=== PATIENT | female | born 1945 | race African-American/Black ===

== ENCOUNTER 2024-11-05 16:11 | Inpatient (IN) | payer BC, MEDICAID ==
[~2024-11-05] VITALS: Ht 180.3 cm; Wt 46.4 kg
[~2024-11-05 16:11] MED LIST: ALBU18HF2 IH; AMLO10TA16 PO; ASPI81TA52 PO; AZEL137S4 NS; BUDE10.26 INH; GUAI600T45 PO; IPRA4AER IH; LACT10SO78 PO; MONT-40 PO; PRED20TA PO
[2024-11-05 16:56] LABS: BASOPHILS % (AUTO) 0.7 % (0-1); EOSINOPHILS # (AUTO) 0.2 X10'3 (0-0.9); EOSINOPHILS % (AUTO) 2.8 % (0-6); HEMOGLOBIN 12.6 g/dl (12.0-16.0); LYMPHOCYTES % (AUTO) 18.1 % (21-51); MEAN CORPUSCULAR HEMOGLOBIN 28.9 PG (27.0-31.0); MEAN CORPUSCULAR HGB CONC 32.4 g/dL (33.0-36.5); MEAN CORPUSCULAR VOLUME 89.4 FL (78-98); MEAN PLATELET VOLUME 8.4 FL (7.4-10.4); MONOCYTES # (AUTO) 0.5 X10'3 (0-0.9); MONOCYTES % (AUTO) 8.6 % (2-12); NEUTROPHILS % (AUTO) 69.8 % (42-75); PLATELET COUNT 246 X10'3 (140-440); RED BLOOD COUNT 4.37 X10'6 (4.20-5.60); RED CELL DISTRIBUTION WIDTH 13.8 % (11.5-14.5); WHITE BLOOD COUNT 5.8 X10'3 (4.5-11.0)
[2024-11-05 17:12] LABS: ALANINE AMINOTRANSFERASE 20 U/L (12-78); ALBUMIN 3.2 G/DL (3.4-5.0); ALBUMIN/GLOBULIN RATIO 0.8 (1.1-1.5); ALKALINE PHOSPHATASE 93 IU/L (46-116); ANION GAP 4 (8-16); ASPARTATE AMINO TRANSFERASE 18 U/L (10-37); BILIRUBIN,TOTAL 0.2 MG/DL (0.1-1.0); BLOOD UREA NITROGEN 11 MG/DL (7-18); BUN/CREATININE RATIO 16.2 (10.0-20.0); CALCIUM 8.9 MG/DL (8.5-10.1); CHLORIDE 107 MMOL/L (99-107); CREATININE 0.68 MG/DL (0.40-0.90); GLUCOSE 111 MG/DL (70-104); POTASSIUM 4.5 MMOL/L (3.5-5.1); SODIUM 145 MMOL/L (135-145); TOTAL CARBON DIOXIDE 33.7 MMOL/L (24-32); TOTAL PROTEIN 7.1 G/DL (6.4-8.2); eCRCL 50 ML/MIN; eGFR > 90 ML/MIN
[2024-11-05 17:19] LABS: PRO BRAIN NATRIURETIC PEPTIDE 35 PG/ML (0-450)
--- NOTE | 2024-11-05 18:23 | Physician Documentation ---
History of Present Illness ~ Chief Complaint: Shortness of Breath Stated Complaint: SOB Time Seen by MD: 18:05 Primary Medical Doctor: [facility] HPI Patient presents to the emergency room with gradual two month increased frequency of shortness of breath. Patient reports that she was also been having problems with constipation and feels like this is somehow related causing her shortness of breath. She was states it feels like she just isn't able to cough something up in his in his as if something is in her chest that needs to be coughed up. No fevers. Patient was normally on 2 L of oxygen and reports that she seven some degree of difficulty with her oxygen machine and it was working with the business to get her machine fixed. She was states she was receiving oxygen but it was not of high quality. Reports compliance with her inhalers. Medication Reconciliation Allergies: Coded Allergies: No Known Allergies (Unverified , 11/05/24) Scheduled Aspirin (Aspirin EC), 1 TAB PO DAILY Azelastine HCl (Azelastine HCl), 2 SPRAY NS BID Budesonide/Formoterol Fumarate (Budesonide-Formoterol 160-4.5), 2 PUFFS INH Q12H Guaifenesin (Mucinex), 1,200 MG PO Q12H Scheduled PRN Albuterol Sulfate (Ventolin Hfa), 1-2 PUFFS IH Q4H PRN for SOB or wheezing Discontinued Medications Amlodipine Besylate (Amlodipine Besylate), 1 TAB PO DAILY Discontinued Reason: patient no longer taking Ipratropium/Albuterol Sulfate (Combivent Respimat Inhal [place]), 2 PUFFS IH Q4H PRN for SOB or wheezing Discontinued Reason: patient no longer taking Lactulose (Lactulose), 30 ML PO Q8H PRN for constipation Discontinued Reason: patient no longer taking Montelukast Sodium (Montelukast Sodium), 10 MG PO DAILY Discontinued Reason: completed med therapy Prednisone* (Prednisone*), 2 TAB PO DAILY Discontinued Reason: patient no longer taking Past Medical History Past Medical History: High Cholesterol, COPD Past Surgical History: noncontributory Patient History: FH: hypertension MOTHER Maternal grandmother Smoking Status: Former smoker Review of Systems ROS All review of systems negative except as per HPI Physical Exam Vital Signs: Temperature: 98.7, Heart Rate: 89, Respiratory Rate: 16, BP: 139/69, Pulse Oximetry: 97, Weight: 46.360 Oxygen Flow Rate: 4.0 Physical Exam General: Patient is awake, alert, oriented x4 in no acute distress Head: Normocephalic and atraumatic. Eyes: Conjunctival normal. EOMI. PERRL. ENT: Mucous membranes moist. Neck: Supple, trachea is midline. Chest: Diminished breath sounds bilaterally with noted wheezing bilaterally.. There is no accessory muscle use or retractions. Cardiac: RRR without murmurs, gallops, or rubs. Abd: Soft, nondistended, nontender, with normoactive bowel sounds. No guarding, rebound, or rigidity. Extremities: Normal strength. Normal range of motion. No deformities or edema. No calf tenderness to palpation Progress Progress Note Patient failed road test Results/Orders Results/Orders Orders - JAYY CRUZ MD Svn Treatment (11/05/24 18:28) Page Hospitalist (11/05/24 21:12) Fill Out Med Reconciliation (11/05/24 21:12) Completed Orders - JAYY CRUZ MD Ipratropium/Albuterol Nebule (Ipratrop/A (11/05/24 18:30) Dexamethasone Tablet (Decadron Tablet) (11/05/24 18:35) Azithromycin Tablet (Zithromax Tablet) (11/05/24 18:35) Medications Received in ER Medications (Trade) Dose Ordered Sig/Thais Route PRN Reason Start Time Stop Time Status Last Admin Dose Admin (ipratrop/ albuterol 0.5-3(2.5) MG/3ml nebule) 3 ml ONCE ONCE NEB 11/05/24 18:30 11/05/24 18:31 DC 11/05/24 18:52 3 ML (Decadron tablet) 8 mg ONCE ONCE PO 11/05/24 18:35 11/05/24 18:36 DC 11/05/24 18:47 8 MG (Zithromax tablet) 500 mg ONCE ONCE PO 11/05/24 18:35 11/05/24 18:36 DC 11/05/24 18:46 500 MG Vital Signs 11/05/24 11/05/24 11/05/24 11/05/24 16:35 17:54 18:00 18:01 Temp 98.7 Pulse 88 89 Resp 20 16 16 B/P (MAP) 144/80 139/69 (92) Pulse Ox 99 97 97 O2 Delivery Nasal Cannula* O2 Flow Rate 2.5 4.0 4 FiO2 N/A 11/05/24 11/05/24 11/05/24 11/05/24 18:55 19:00 21:00 21:00 Pulse 88 101 98 Resp 18 18 15 20 B/P (MAP) 135/64 (87) Pulse Ox 98 98 98 O2 Delivery Nasal Cannula* Nasal Cannula* O2 Flow Rate 3 3 4.0 FiO2 32 32 Laboratory Tests Test 11/05/24 16:47 11/05/24 18:36 11/05/24 19:43 White Blood Count 5.8 Red Blood Count 4.37 Hemoglobin 12.6 Hematocrit 39.0 Mean Corpuscular Volume 89.4 Mean Corpuscular Hemoglobin 28.9 Mean Corpuscular Hemoglobin Concent 32.4 L Red Cell Distribution Width 13.8 Platelet Count 246 Mean Platelet Volume 8.4 Neutrophils (%) (Auto) 69.8 Lymphocytes (%) (Auto) 18.1 L Monocytes (%) (Auto) 8.6 Eosinophils (%) (Auto) 2.8 Basophils (%) (Auto) 0.7 Neutrophils # (Auto) 4.0 Lymphocytes # (Auto) 1.0 L Monocytes # (Auto) 0.5 Eosinophils # (Auto) 0.2 Basophils # (Auto) 0.0 CBC Comment Sodium Level 145 Potassium Level 4.5 Chloride Level 107 Carbon Dioxide Level 33.7 H Anion Gap 4 L Blood Urea Nitrogen 11 Creatinine 0.68 Estimated GFR/1.73 m2 > 90 BUN/Creatinine Ratio 16.2 Glucose Level 111 H Calcium Level 8.9 Total Bilirubin 0.2 Aspartate Amino Transf (AST/SGOT) 18 Alanine Aminotransferase (ALT/SGPT) 20 Alkaline Phosphatase 93 Troponin I High Sensitivity 12 10 10 Pro-B-Type Natriuretic Peptide 35 Total Protein 7.1 Albumin 3.2 L Globulin 3.9 Albumin/Globulin Ratio 0.8 L Chemistry Comments Troponin I High Sens Percent Delta 16 0 Troponin I Hi Sens Absolute Change -2 0 EKG/XRAY/CT/US/VASC/MRI EKG : Additional Comment EKG interpreted by myself shows time of 1635, rate 89, sinus rhythm, normal axis, no ST changes Chest X-Ray : Additional Comments Exam: CHEST,SINGLE VIEW CHEST RADIOGRAPH Indication: Right pneumothorax Technique: Single frontal view of the chest was obtained Comparison: DI CHEST,SINGLE VIEW on DOS: 11/05/24, DI CHEST,SINGLE VIEW on DOS: 11/04/24, DI CHEST,SINGLE VIEW on DOS: 11/02/24 FINDINGS: Lines and Tubes: None Lungs: No focal consolidation. Pleura: No effusion. No pneumothorax. Cardiomediastinal contours: Unremarkable Bones: No acute osseous abnormality. IMPRESSION: 1. No acute cardiopulmonary disease. Electronically Signed by:EMELY VELA Jr., DO Date Time: 11/05/24 1650 Medical Decision Making Findings Patient presents to the emergency room with chief complaint of shortness of breath. Differentials include but are not limited to pneumonia, CHF exacerbation, COPD exacerbation, deconditioning, allergies therefore emergent labs and imaging indicated. Patient was had improvement with breathing treatmen t and x-ray is reassuring as are labs. Unfortunately she failed road test. It was azithromycin empirically started it was well as steroids. Departure Admitted to Inpatient Unit: yes, to hospitalist Impression: Primary Impression: COPD exacerbation Condition: Guarded Referrals: NO PRIMARY CARE PROVIDER (PCP) Signature Scribe Signature: No scribe Attestation: The note accurately reflects work and decisions made by me.Jayy Cruz MD 11/05/24 21:14 JAYY CRUZ MD November 05, 2024 18:23
[2024-11-05] MEDS: azithromycin 250mg tablet PO ONE (18:46)
[2024-11-05] MEDS: dexamethasone 4mg tablet PO ONE (18:47)
[2024-11-05] MEDS: ipratropium/albuterol 3ml nebule NEB ONE (18:52)
[2024-11-05 18:55] VITALS: PULSE 88; RESP 18; O2SAT 98
[2024-11-05 19:00] VITALS: PULSE 101; RESP 18; O2SAT 98
[2024-11-05] MEDS ORDERED: magnesium sulf-water 2g/50mL 50 ML IV PRN (21:40)
[2024-11-05] MEDS ORDERED: acetaminophen 325mg tablet PO PRN ×2 (21:40→22:35)
[2024-11-05] MEDS ORDERED: potassium Cl 20 mEq SR tablet PO PRN ×2 (21:40)
[2024-11-05] MEDS ORDERED: magnesium sulf-water 4G/100mL 100 ML IV PRN (21:40)
[2024-11-05] MEDS ORDERED: potassium Cl 40MEQ/1/2NS 520ml 520 ML IV PRN (21:40)
[2024-11-05] MEDS ORDERED: ondansetron/PF 4mg/2ml inj IV PRN (21:40)
[2024-11-05] MEDS ORDERED: mag hydrox/Alum hydrox/simeth 30ml oral suspension PO PRN (21:40)
[2024-11-05] MEDS ORDERED: magnesium Cl slow-release 64mg tablet PO PRN (21:40)
[2024-11-05 21:53] LABS: BILIRUBIN,URINE NEGATIVE (Neg); CLARITY,URINE CLEAR (Clear); COLOR,URINE YELLOW (Yellow); GLUCOSE, URINE NEGATIVE (Neg); KETONES,URINE NEGATIVE (Neg); LEUKOCYTE ESTERASE ,URINE NEGATIVE (Neg); NITRITES, URINE NEGATIVE (Neg); OCCULT BLOOD,URINE NEGATIVE (Neg); PH,URINE 6.5 (4.8-8.0); PROTEIN,URINE NEGATIVE (Neg); UROBILINOGEN,URINE 0.2 E.U/dL (0.2-1.0)
[2024-11-05 22:00] LABS: UA COLLECTION TYPE NON-SPECIFIED
[2024-11-05 22:04] LABS: HEMOGLOBIN A1C 6.6 % (4.5-6.2)
[2024-11-05] MEDS: normal saline 1000ml 1,000 ML IV SCH (22:05)
--- NOTE | 2024-11-05 22:20 | HISTORY AND PHYSICAL-Residence ---
History & Physical Providers to CC Resident Creating Document: DAGOBERTO NGUYEN, RES ~ History of Present Illness Primary Medical Doctor: None Reason for Admit\Complaint: Shortness of breath History of Present Illness PCP: None. As per patient she moved to [place] in 2019, she is not being able to establish PCP. 79-year-old female patient quit past medical history of COPD diagnosed in 2018, using 2 L of oxygen at home, arthritis came to the hospital with chief complaint of shortness of breath. The patient mentioned that during the last week her home oxygen machine was not working appropriately reason for which she started having increased episodes of shortness of breath. Yesterday the patient received a new machine, the patient was using it as always but she noticed that she was not able to catch her breath. The patient also endorses increased frequency of dry cough, this morning the patient noticed that his oxygen saturation was decreasing even though after she increased her oxygen levels, reason for which she decided to to call to the ambulance and come to the hospital. Among other symptoms the patient mentioned that when she has the shortness of breath some chest pressure is noted, without radiation, 5/10 in intensity. The patient currently denies palpitations, lightheadedness, dizziness, urinary or intestinal symptoms. Allergies: Coded Allergies: No Known Allergies (Unverified , 11/05/24) Home Medications Home Medications Active Budesonide-Formoterol 160-4.5 (Budesonide/Formoterol Fumarate) 160 Mcg-4.5 Mcg/Actuation Hfa.aer.ad 2 Puffs INH Q12H 30 Days Azelastine HCl 137 Mcg (0.1 %) Nimitz.pump 2 Nimitz NS BID Aspirin EC (Aspirin) 81 Mg Tablet.dr 1 Tab PO DAILY 30 Days Ventolin Hfa (Albuterol Sulfate) 90 Mcg Hfa.aer.ad 1-2 Puffs IH Q4H PRN Mucinex (Guaifenesin) 600 Mg Tablet.sa 1,200 Mg PO Q12H 7 Days Past Medical History Past Medical History COPD using albuterol, budesonide and formoterol at home. Baseline oxygen 2 L. Arthritis for which he takes Tylenol over the counter. Past Surgical History Surgical History Comment Benign polyp removed 13 years ago. Tonsillectomy during childhood. Family History Family History: FH: hypertension MOTHER Maternal grandmother Past Social History Smoking: Quit greater than 1 year (As per patient she quit smoking around 2016, she used to smoke half a pack a day for 10 years.) Alcohol Use: Occasionally (The patient endorses four drinks of sonny per month, sometimes she does not drink.) Drug Use: Marijuana (The patient endorsed use of marijuana several years ago.) Lives with: Other (The patient lives with her daughter who usually takes care of her.) Lives In: Home (The patient lives in her daughter's house.) Occupation: retired ROS All Other Systems: Reviewed and Negative Exam Vitals: Vital Signs Date Time Temp Pulse Resp B/P (MAP) Pulse Ox O2 Delivery O2 Flow Rate FiO2 11/05/24 21:00 20 11/05/24 21:00 98 135/64 (87) 98 4.0 11/05/24 19:00 Nasal Cannula* 32 11/05/24 16:35 98.7 Physical exam: General: Cachectic elderly women, well alert, well oriented, not confused, not agitated, not in acute distress, well cooperated during the physical. HEENT: Conjunctive are pink, sclerae clear, no icterus, pupil is equal in both sides, reactive to light, no ear discharge, no pharyngeal erythema or an edema. Neck: Supple, no JVD, no lymphadenopathy and thyromegaly. Chest: Equal air entry on both lungs, presence of diffuse bilateral wheezing. Cardiovascular: S1-S2 regular sinus rhythm and, regular rate, no gallops, no rubs, no murmurs Abdomen: No visible peristalsis, Bowel sounds present on auscultation, soft, nontender, no guarding, no rigidity Extremities: No obvious deformities, no pitting edema bilaterally, capillary refill intact, peripheral pulsations are intact on both sides Central Nervous System: No focal neurological deficits, no motor or sensory weakness in all 4 extremities, could move all 4 extremities, 2+ deep tendon reflexes, negative Babinski. Musculoskeletal: No joint swelling, deformities, inflammations, and no scoliosis and back tenderness Skin: Warm and dry. Diagnostic Data Last Recorded Lab Results: 11/05/24 1647 11/05/24 1647 Advance Care Planning Advanced Care plannin - 30 Minutes (I spent a total of 17 minutes on reviewing various resuscitative measures/ACP with the patient at the time of admission. The patient has decided on a full code status.) Additional Plan Assessment and plan: 79-year-old female patient came to the hospital with chief complaint of shortness of breath. The patient uses normally oxygen at home, baseline 2 L. Acute on chronic hypoxemic respiratory failure: Acute exacerbation of COPD: Acute exacerbation of congestive heart failure-ruled out: Pulmonary embolism-ruled out: Severe centrilobular emphysema: The patient came to the hospital with chief complaint of shortness of breaths and increased need of oxygen. Her baseline of oxygen is 2 L. the patient also endorses increased frequency of dry cough. The patient mentioned that her oxygen was around 84 % even with her machine. Follow-up COVID-19, Well's score 1.5: Elevated D-dimer, CTA of the chest: No evidence of acute or chronic PE. 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 No evidence of dissection or ascending thoracic aorta aneurysm. COPD with severe centrilobular emphysema ProBNP 35: Ruled out CHF. Methylprednisolone 60 mg b.i.d. Ceftriaxone 1 g daily. Azithromycin 500 mg daily. DuoNeb q.4h scheduled. DuoNeb q.2h p.r.n. Culturelle [id number] mmu b.i.d. Keep oxygen saturation above 88%. Incentive spirometry every 2 hours while awake. Arthritis: Acetaminophen p.r.n. for mild pain. Code status: Full code DVT prophylaxis: Heparin Analgesia/sedation: Tylenol. Line/tube: PIV GI prophylaxis: Protonix Nutrition: Regular diet PT: Ordered Prognosis: Guarded Disposition: The patient will be admitted to ortho floor. Dagoberto Sparks Internal Medicine Resident [facility] Date of Service: November 05, 2024 Billing Provider: TOMMY JACKSON MD, FRANCO LUIS, RES November 05, 2024 22:20 TOMMY JACKSON MD November 06, 2024 04:58
[2024-11-05] MEDS ORDERED: ipratropium/albuterol 3ml nebule NEB PRN (22:30)
[2024-11-05 22:38] LABS: D-DIMER 1.66 MG/L FEU (0-0.50)
[2024-11-05] MEDS ORDERED: iohexol 350MG/ML 100ml bottle IV ONE (22:46)
[2024-11-05] MEDS: CefTRIAXone/D5W-Rocephin 1gm 50 ML IV SCH (23:09)
[2024-11-05] MEDS: lactobacillus rhamnosus 10,000 MMU CELLS/CAPSULE PO SCH (23:09)
[2024-11-05 23:30] VITALS: BP 169/68; PULSE 103; RESP 20; TEMP 99.3; O2SAT 92
--- NOTE | 2024-11-05 23:50 | RADIOLOGY REPORT ---
Clinical History sob and elevated d dimer Comparison None Technique: MIPS reconstruction was performed in multiple planes. All CT scans at this medical facility are performed using dose modulation techniques as appropriate t o a performed exam including the following: Automated exposure control was utilized; adjustment of th e mA and/or kV according to patient size; and use of iterative reconstruction technique. All CT studies are reported to the Dose Index Registry of the [employer]. 3D images be reconstructed or obtained with maximum intensity projection postprocessing (MIP), volume rendered or other 3D technique. Contrast: OMNI 350 100ML Radiation Dose: CTDI (mGy): 15.51; DLP (mGy-cm): 266.70 YONIS CASTRO, [id number] Findings: white shoe examiner: none Mediastinum: Unremarkable thyroid gland. No significant meidastinal or hilar lymphadenopathy. No ev idence of acute or chronic PE. Atherosclerotic calcification of thoracic aorta. 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 Descendi ng thoracic aorta stent is seen in placeThe major mediastinal vascular structures are unremarkable. T he heart and pericardium are unremarkable. The esophagus is unremarkable. Thoracic wall: Subcentimeter partially imaged left breast peripheral nodule which could represent a l ymph node, correlation with dedicated breast imaging is recommended Lungs: Extensive bilateral centrilobular emphysematous changes. Inferior lingula, right middle lobe and bibasilar atelectasis. No suspicious pulmonary nodules, masses, consolidation or edema.No pleura l effusion. No pneumothorax.The major airways are unremarkable. Upper abdomen: No acute pathology. Musculoskeletal: No acute osseous abnormality. Impression: No evidence of acute or chronic PE. 1.7 x 1.6 cm focal eccentric saccular aneurysm is seen arising from the lateral aspect of the mid aor tic arch. No evidence of dissection or ascending thoracic aorta aneurysm COPD with severe centrilobular emphysema No suspicious pulmonary nodules, masses, consolidation or edema. This report was electronically signed by Ezra Arenas MD on 11/05/2024 11:46:33 PM.
[2024-11-06] VITALS (16 sets, daily range): BP systolic 137–166; BP diastolic 53–64; PULSE 79–105; RESP 16–22; TEMP 97.8–98.7; O2SAT 92–99
[2024-11-06 05:29] LABS: BASOPHILS % (AUTO) 0.5 % (0-1); EOSINOPHILS % (AUTO) 0 % (0-6); HEMATOCRIT 37.9 % (35.0-45.0); HEMOGLOBIN 12.2 g/dl (12.0-16.0); LYMPHOCYTES % (AUTO) 15.2 % (21-51); MEAN CORPUSCULAR HEMOGLOBIN 28.7 PG (27.0-31.0); MEAN CORPUSCULAR HGB CONC 32.2 g/dL (33.0-36.5); MEAN CORPUSCULAR VOLUME 89.4 FL (78-98); MEAN PLATELET VOLUME 8.7 FL (7.4-10.4); MONOCYTES # (AUTO) 0.2 X10'3 (0-0.9); MONOCYTES % (AUTO) 2.6 % (2-12); NEUTROPHILS # (AUTO) 5.2 X10'3 (1.8-7.7); NEUTROPHILS % (AUTO) 81.7 % (42-75); PLATELET COUNT 259 X10'3 (140-440); RED BLOOD COUNT 4.24 X10'6 (4.20-5.60); RED CELL DISTRIBUTION WIDTH 13.8 % (11.5-14.5); WHITE BLOOD COUNT 6.4 X10'3 (4.5-11.0)
[2024-11-06 05:49] LABS: ALANINE AMINOTRANSFERASE 20 U/L (12-78); ALBUMIN 3.4 G/DL (3.4-5.0); ALBUMIN/GLOBULIN RATIO 0.9 (1.1-1.5); ALKALINE PHOSPHATASE 94 IU/L (46-116); ANION GAP 6 (8-16); ASPARTATE AMINO TRANSFERASE 19 U/L (10-37); BILIRUBIN,TOTAL 0.2 MG/DL (0.1-1.0); BLOOD UREA NITROGEN 11 MG/DL (7-18); CALCIUM 9.2 MG/DL (8.5-10.1); CHLORIDE 106 MMOL/L (99-107); CREATININE 0.55 MG/DL (0.40-0.90); GLUCOSE 139 MG/DL (70-104); MAGNESIUM 2.2 MG/DL (1.5-2.4); POTASSIUM 4.5 MMOL/L (3.5-5.1); SODIUM 143 MMOL/L (135-145); TOTAL CARBON DIOXIDE 30.8 MMOL/L (24-32); TOTAL PROTEIN 7.4 G/DL (6.4-8.2); eCRCL 62 ML/MIN; eGFR > 90 ML/MIN
--- NOTE | 2024-11-06 06:44 | ELECTROCARDIOGRAPH REPORT ---
[facility] Test Date: 2024-11-05 Test Time: 16:35:33 Pat Name: YONIS CASTRO Department: EMERGENCY ROOM Room: [place] [id number] A Gender: F Operations Director: YAMILET : 1945 Requested By: BACILIO LIRA Order Number: [id number] Reading MD: Dr. Amari Roman Measurements Intervals [place] Rate: 89 P: 75 MT: 156 QRS: 57 QRSD: 84 T: 83 QT: 365 QTc: 445 Interpretive Statements Sinus rhythm Borderline low voltage, extremity leads Electronically Signed On 11-07-2024 15:44:[address] Amari Roman Please click the below link to view image of tracing.
[2024-11-06] MEDS: ipratropium/albuterol 3ml nebule NEB SCH (07:12)
[2024-11-06] MEDS: K and/or MAG REPLACEMENT MC SCH (08:00)
[2024-11-06] MEDS: methylPREDNISolone sod succ/PF 40mg inj. IV SCH ×2 (08:23→17:01)
[2024-11-06] MEDS: azithromycin 250mg tablet PO ONE (08:27)
[2024-11-06] MEDS: docusate sod 100mg capsule PO SCH (08:27)
[2024-11-06] MEDS: pantoprazole 40mg Tablet.DR PO SCH (08:27)
[2024-11-06] MEDS: heparin, porcine 5000 units/ml vial SQ SCH (08:29)
[2024-11-06] MEDS: magnesium hydroxide 30ml (MOM) UD suspension PO PRN (15:13)
[2024-11-06] MEDS: sennosides/docusate sodium tablet PO ONE (17:22)
--- NOTE | 2024-11-06 17:22 | CARDIOLOGY REPORT ---
APPROVED REPORT EXAM: Comprehensive 2D, Doppler, and color-flow Echocardiogram. Patient Location: 4007 A Blood Pressure: 169/68 mmHg Heart Rate: 103 bpm Rhythm: SINUS TACHYCARDIA Indications SHORTNESS OF BREATH COPD FOCAL AORTIC ANEURYSM AT THE ARCH Approver: none Previous echo: 01/16/24 [facility] (EF 65-70%, trace MR, mild TR) 2D Dimensions RVDd 3.4 cm IVSd 1.0 (0.7-1.1cm) LVDd 3.7 cm PWd 1.0 (0.7-1.1cm) IVSs 1.5 (0.8-1.2cm) LVDs 2.0 (2.5-4.0cm) PWs 1.2 (0.8-1.2cm) LVOT Diameter 1.85 (1.8-2.4cm) LVEF(%) 78.6 (>50%) FS (%) 46.4 % SV 44.6 ml CO 4.3 L/min M-Mode Dimensions Left Atrium(MM) 2.79 (2.5-4.0cm) Aortic Root 3.08 (2.2-3.7cm) Aortic Cusp Exc 1.83 (1.5-2.0cm) Aortic Valve AoV Peak Fabio. 152.7 cm/s AoV VTI 24.4 cm AO Peak GR. 9.3 mmHg AO Mean GR. 5 mmHg LVOT VTI 23.47 cm LVOT Peak Fabio. 125.5 cm/s GABY(VTI)/BSA 2.60 cm2/m2 GABY (VTI) 2.60 cm2 Mitral Valve MV E Velocity 82.4 cm/s MV Peak Gr. 3 mmHg MV DECEL TIME 252 ms MV A Velocity 111.0 cm/s MV PHT 56 ms E/A Ratio 0.7 MVA (PHT) 3.93 cm2 MV VMax83.7 cm/s TDI Medial E' P. V 11.11 cm/s E/Medial E' 7.4 Tricuspid Valve TR P. Velocity 300 cm/s RAP ESTIMATE 10 mmHg TR Peak Gr. 36 mmHg RVSP 46 mmHg Pulmonary Vein S1 Velocity 72.5 cm/s D2 Velocity 46.1 cm/s PVa Fzohgvrt53.9 cm/s PVa [id number] msec LEFT VENTRICLE Normal LV size and wall thickness. Overall systolic function is hyperdynamic. LVOT obstruction, likel y due to hyperdynamic LV function. Resting gradient of 7 mmHg, increasing to 28 mmHg with Valsalva ma neuver. LVEF is 75-80%. RIGHT VENTRICLE RV is normal size and function. Thickened RV free wall. ATRIA LA size is normal. AORTIC VALVE Trileaflet AV appears mildly sclerotic without stenosis or insufficiency. MITRAL VALVE Mild MV annular calcification without stenosis. Trace regurgitation. TRICUSPID VALVE TV appears structurally normal with trace regurgitation. PULMONIC VALVE Normal PV without stenosis, physiologic insufficiency. GREAT VESSELS Aortic root is normal in size. Ascending aorta is normal in size. PERICARDIUM Normal pericardium. No effusion. Other Information Study Quality: Adequate, but difficult due to COPD.
--- NOTE | 2024-11-06 19:06 | PROGRESS NOTE- Residence ---
Progress Note - Resident Providers to CC Resident Creating Document: JENNIFER ROSARIO RES ~ Antibiotic Timeout Antibiotic Ordered?: Yes Subjective The patient is a 79-year-old female with a longstanding history of COPD, diagnosed in 2018, currently on 2 L supplemental oxygen at home. She presented with worsening shortness of breath. The patient lacks consistent access to a primary care provider and [facility] and [place]. Dr. Albert addressed the issue with case management in initiated a referral to [facility] for primary care services to help reduce the risk of future exacerbations in hospital readmissions. The patient was also referred to pulmonary rehab for ongoing support and management. Objective Vital Signs Date Time Temp Pulse Resp B/P (MAP) Pulse Ox O2 Delivery O2 Flow Rate FiO2 11/06/24 18:30 93 11/06/24 18:00 98.7 22 166/64 (98) 92 Nasal Cannula 3.5 11/06/24 14:37 32 General: Awake and Alert, speaks in pauses due to shortness of breath, unable to complete a sentence HEENT: Conjunctiva pink, Sclera clear, Mucus Membranes moist. Neck: Supple without masses and tenderness. Resp: Diffuse bilateral wheezing, air entry has significantly reduced bilaterally Heart: Regular Rate and rhythm, normal S1 and S2 without murmur, rub or gallop. Abdomen: Soft and non tender no organomegaly Extremities: No cyanosis,clubbing or edema. Skin: Warm and Dry. Result Diagram: 11/06/24 0501 11/06/24 0501 Coagulation Studies Laboratory Tests Test 11/05/24 22:19 D-Dimer 1.66 MG/L FEU (0-0.50) H D-Dimer Comment Advance Care Planning Advanced Care plannin - 30 Minutes Assessment Assessment The patient is a 79-year-old female with a longstanding history of COPD, diagnosed in 2018, currently on 2 L supplemental oxygen at home. She presented with worsening shortness of breath. The patient legs consistent access to a primary care provider and has been [facility] and [place]. Plan Plan Acute on chronic hypoxemic respiratory failure: Acute exacerbation of COPD: Acute exacerbation of congestive heart failure-ruled out: Severe centrilobular emphysema D-dimer elevated, CTA performed, PE ruled out. 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 No evidence of dissection or ascending thoracic aorta aneurysm. Methylprednisolone increased to 60 mg 3 times daily Ceftriaxone 1 g daily. Azithromycin 500 mg daily. For three days, we will discontinue tomorrow DuoNeb q.4h scheduled. DuoNeb q.2h p.r.n. Culturelle [id number] mmu b.i.d. Keep oxygen saturation above 88%. Incentive spirometry every 2 hours while awake. Newly diagnosed diabetes type 2: A1c 6.6 Hyperglycemia/hypoglycemia protocol in place Patient will be discharged on metformin 500 mg twice daily Hyperlipidemia: LDL 130 - goal less than 70 Atorvastatin 40 mg p.o. daily initiated Arthritis: Acetaminophen p.r.n. for mild pain. Code status: Full code DVT prophylaxis: Heparin Jennifer Rosario Internal Medicine Resident Date of Service: November 06, 2024 Billing Provider: STACEY ALBERT MD, SHAMS, RES November 06, 2024 19:06
[2024-11-06] MEDS: sennosides/docusate sodium tablet PO SCH (19:27)
[2024-11-06] MEDS: polyethylene glycol 3350 17gm powd pack PO SCH (20:31)
[2024-11-06 22:16] LABS: CHOL/HDL RATIO 3.4 (0.00-4.99); CHOLESTEROL 229 MG/DL (0-200); HDL CHOLESTEROL 67 MG/DL (35-60); LDL CHOLESTEROL 130 MG/DL (50-100); TRIGLYCERIDES 59 MG/DL (20-135)
[2024-11-07] VITALS (12 sets, daily range): BP systolic 135–177; BP diastolic 56–85; PULSE 75–107; RESP 16–26; TEMP 97.6–98.6; O2SAT 89–99
[2024-11-07 04:22] LABS: BASOPHILS % (AUTO) 0.3 % (0-1); EOSINOPHILS % (AUTO) 0.1 % (0-6); HEMATOCRIT 36.4 % (35.0-45.0); HEMOGLOBIN 11.5 g/dl (12.0-16.0); LYMPHOCYTES # (AUTO) 0.6 X10'3 (1.1-4.8); LYMPHOCYTES % (AUTO) 8.8 % (21-51); MEAN CORPUSCULAR HEMOGLOBIN 28.5 PG (27.0-31.0); MEAN CORPUSCULAR HGB CONC 31.7 g/dL (33.0-36.5); MEAN CORPUSCULAR VOLUME 89.9 FL (78-98); MEAN PLATELET VOLUME 8.8 FL (7.4-10.4); MONOCYTES # (AUTO) 0.1 X10'3 (0-0.9); MONOCYTES % (AUTO) 0.9 % (2-12); NEUTROPHILS # (AUTO) 6.5 X10'3 (1.8-7.7); NEUTROPHILS % (AUTO) 89.9 % (42-75); PLATELET COUNT 266 X10'3 (140-440); RED BLOOD COUNT 4.05 X10'6 (4.20-5.60); RED CELL DISTRIBUTION WIDTH 14.3 % (11.5-14.5); WHITE BLOOD COUNT 7.2 X10'3 (4.5-11.0)
[2024-11-07] MEDS: amLODIPine 5mg tablet PO ONE (04:42)
[2024-11-07 04:43] LABS: ALANINE AMINOTRANSFERASE 18 U/L (12-78); ALBUMIN 3.4 G/DL (3.4-5.0); ALBUMIN/GLOBULIN RATIO 0.9 (1.1-1.5); ALKALINE PHOSPHATASE 92 IU/L (46-116); ANION GAP 7 (8-16); ASPARTATE AMINO TRANSFERASE 19 U/L (10-37); BILIRUBIN,TOTAL 0.1 MG/DL (0.1-1.0); BLOOD UREA NITROGEN 11 MG/DL (7-18); BUN/CREATININE RATIO 16.4 (10.0-20.0); CALCIUM 9.4 MG/DL (8.5-10.1); CHLORIDE 104 MMOL/L (99-107); CREATININE 0.67 MG/DL (0.40-0.90); GLUCOSE 175 MG/DL (70-104); MAGNESIUM 2.2 MG/DL (1.5-2.4); POTASSIUM 4.4 MMOL/L (3.5-5.1); SODIUM 144 MMOL/L (135-145); TOTAL CARBON DIOXIDE 32.7 MMOL/L (24-32); TOTAL PROTEIN 7.3 G/DL (6.4-8.2); eCRCL 51 ML/MIN; eGFR > 90 ML/MIN
[2024-11-07] MEDS: azithromycin 250mg tablet PO SCH (08:02)
[2024-11-07] MEDS: atorvastatin 20mg tablet PO SCH (09:32)
[2024-11-07] MEDS ORDERED: dextrose 50%-water 50ml dispensing syringe IV PRN ×2 (13:30)
[2024-11-07] MEDS ORDERED: DEXTROSE 15 GM of carb/4 tabs (each vial/BOTTLE has 4 tablets) PO PRN ×2 (13:30)
[2024-11-07] MEDS ORDERED: glucagon, human recombinant 1mg kit SUBCUT PRN (13:30)
--- NOTE | 2024-11-07 14:19 | PROGRESS NOTE- Residence ---
Progress Note - Resident Providers to CC Resident Creating Document: JENNIFER ROSARIO RES ~ Antibiotic Timeout Antibiotic Ordered?: Yes Subjective Patient was seen and examined at bedside. She is feeling relatively better today. She is on 3 L supplemental oxygen via nasal cannula. She has diagnosed with diabetes type 2, discuss day diet and lifestyle modification and metformin upon discharge. We discussed referral to [facility] [place] with keycase assembler. She has referred to pulmonary rehab. Objective Vital Signs Date Time Temp Pulse Resp B/P (MAP) Pulse Ox O2 Delivery O2 Flow Rate FiO2 11/07/24 11:51 103 26 Nasal Cannula 3.0 11/07/24 11:49 99 32 11/07/24 10:00 98.6 135/56 (82) General: Awake and Alert, speaks in pauses due to shortness of breath, unable to complete a sentence HEENT: Conjunctiva pink, Sclera clear, Mucus Membranes moist. Neck: Supple without masses and tenderness. Resp: Diffuse bilateral wheezing, air entry has reduced bilaterally, more prominent on left side Heart: Regular Rate and rhythm, normal S1 and S2 without murmur, rub or gallop. Abdomen: Soft and non tender no organomegaly Extremities: No cyanosis,clubbing or edema. Skin: Warm and Dry. Result Diagram: 11/07/24 0357 11/07/24 0357 Coagulation Studies Laboratory Tests Test 11/05/24 22:19 D-Dimer 1.66 MG/L FEU (0-0.50) H D-Dimer Comment Advance Care Planning Advanced Care plannin - 30 Minutes Assessment Assessment The patient is a 79-year-old female with a longstanding history of COPD, diagnosed in 2018, currently on 2 L supplemental oxygen at home. She presented with worsening shortness of breath. The patient legs consistent access to a primary care provider and has been intermittently seeking care at the [place] [facility] and [place]. Plan Plan Acute on chronic hypoxemic respiratory failure: Acute exacerbation of COPD: Acute exacerbation of congestive heart failure-ruled out: Severe centrilobular emphysema D-dimer elevated, CTA performed, PE ruled out. 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 No evidence of dissection or ascending thoracic aorta aneurysm. Methylprednisolone increased to 60 mg 3 times daily - will be tapered from tomorrow Ceftriaxone 1 g daily. Azithromycin 500 mg daily. For three days, we will discontinue tomorrow DuoNeb q.4h scheduled. DuoNeb q.2h p.r.n. Culturelle [address] mmu b.i.d. Keep oxygen saturation above 88%. Incentive spirometry every 2 hours while awake. Newly diagnosed diabetes type 2: A1c 6.6 Hyperglycemia/hypoglycemia protocol in place Patient will be discharged on metformin 500 mg twice daily Lifestyle modification and diet discussed with patient Hypertension: BP has consistently been running high SBP 160s-170s Lisinopril 10 mg daily initiated Hyperlipidemia: LDL 130 - goal less than 70 Atorvastatin 40 mg p.o. daily initiated Arthritis: Acetaminophen p.r.n. for mild pain. Code status: Full code DVT prophylaxis: Heparin Jennifer Rosario Internal Medicine Resident Date of Service: November 07, 2024 Billing Provider: STACEY ALBERT MD,JENNIFER, RES November 07, 2024 14:19
[2024-11-07] MEDS: lisinopril 10 MG tablet PO SCH (14:35)
[2024-11-07] MEDS: INSULIN LISPRO 100 UNIT/ML INSULN.PEN MULTI-DOSE SQ SCH (17:43)
[2024-11-08] VITALS (12 sets, daily range): BP systolic 134–180; BP diastolic 55–75; PULSE 84–96; RESP 16–24; TEMP 98.1–98.7; O2SAT 91–100
[2024-11-08 04:56] LABS: BASOPHILS % (AUTO) 0.3 % (0-1); EOSINOPHILS % (AUTO) 0 % (0-6); HEMATOCRIT 36.4 % (35.0-45.0); HEMOGLOBIN 11.8 g/dl (12.0-16.0); LYMPHOCYTES # (AUTO) 0.9 X10'3 (1.1-4.8); LYMPHOCYTES % (AUTO) 9.1 % (21-51); MEAN CORPUSCULAR HEMOGLOBIN 28.9 PG (27.0-31.0); MEAN CORPUSCULAR HGB CONC 32.5 g/dL (33.0-36.5); MEAN CORPUSCULAR VOLUME 89.1 FL (78-98); MEAN PLATELET VOLUME 9.1 FL (7.4-10.4); MONOCYTES # (AUTO) 0.2 X10'3 (0-0.9); MONOCYTES % (AUTO) 2.1 % (2-12); NEUTROPHILS # (AUTO) 8.8 X10'3 (1.8-7.7); NEUTROPHILS % (AUTO) 88.5 % (42-75); PLATELET COUNT 280 X10'3 (140-440); RED BLOOD COUNT 4.08 X10'6 (4.20-5.60); RED CELL DISTRIBUTION WIDTH 14.4 % (11.5-14.5)
[2024-11-08 05:15] LABS: ALANINE AMINOTRANSFERASE 18 U/L (12-78); ALBUMIN 3.3 G/DL (3.4-5.0); ALBUMIN/GLOBULIN RATIO 0.9 (1.1-1.5); ALKALINE PHOSPHATASE 85 IU/L (46-116); ANION GAP 8 (8-16); ASPARTATE AMINO TRANSFERASE 14 U/L (10-37); BILIRUBIN,TOTAL 0.2 MG/DL (0.1-1.0); BLOOD UREA NITROGEN 13 MG/DL (7-18); CALCIUM 9.1 MG/DL (8.5-10.1); CHLORIDE 106 MMOL/L (99-107); GLUCOSE 154 MG/DL (70-104); MAGNESIUM 2.2 MG/DL (1.5-2.4); SODIUM 148 MMOL/L (135-145); TOTAL CARBON DIOXIDE 34.3 MMOL/L (24-32); eCRCL 68 ML/MIN; eGFR > 90 ML/MIN
[2024-11-08] MEDS: methylPREDNISolone sod succ/PF 40mg inj. IV SCH ×2 (07:51→09:00)
--- NOTE | 2024-11-08 18:32 | PROGRESS NOTE- Residence ---
Progress Note - Resident Providers to CC Resident Creating Document: JENNIFER ROSARIO RES ~ Antibiotic Timeout Antibiotic Ordered?: Yes Subjective Patient was seen and examined at bedside. She is feeling relatively better. She is on 3 L supplemental oxygen via nasal cannula. Patient is currently weak with limited social support. It is recommended that she be placed in a fpc facility for continued care and support, which and also help prevent readmission and COPD exacerbation. We discussed this plan with the patient, and she agreed. 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 Objective Vital Signs Date Time Temp Pulse Resp B/P (MAP) Pulse Ox O2 Delivery O2 Flow Rate FiO2 11/08/24 15:20 96 24 Nasal Cannula 3.0 11/08/24 15:11 91 32 11/08/24 10:00 98.1 134/55 (81) General: Awake and Alert, speaks in pauses due to shortness of breath, unable to complete a sentence HEENT: Conjunctiva pink, Sclera clear, Mucus Membranes moist. Neck: Supple without masses and tenderness. Resp: Intermittent mild bilateral wheezing Heart: Regular Rate and rhythm, normal S1 and S2 without murmur, rub or gallop. Abdomen: Soft and non tender no organomegaly Extremities: No cyanosis,clubbing or edema. Skin: Warm and Dry. Result Diagram: 11/08/24 0421 11/08/24 0421 Coagulation Studies Laboratory Tests Test 11/05/24 22:19 D-Dimer 1.66 MG/L FEU (0-0.50) H D-Dimer Comment Advance Care Planning Advanced Care plannin - 30 Minutes Assessment Assessment The patient is a 79-year-old female with a longstanding history of COPD, diagnosed in 2018, currently on 2 L supplemental oxygen at home. She presented with worsening shortness of breath. The patient legs consistent access to a primary care provider and has been intermittently seeking care at the [place] walk-in clinic and [place]. Plan Plan Acute on chronic hypoxemic respiratory failure: Acute exacerbation of COPD: Acute exacerbation of congestive heart failure-ruled out: Severe centrilobular emphysema D-dimer elevated, CTA performed, PE ruled out. 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 No evidence of dissection or ascending thoracic aorta aneurysm. Continue methylprednisolone 60 mg 3 times any Ceftriaxone 1 g daily. Azithromycin 500 mg daily. DuoNeb q.4h scheduled. DuoNeb q.2h p.r.n. Culturelle 30423 mmu b.i.d. Keep oxygen saturation above 88%. Incentive spirometry every 2 hours while awake. Newly diagnosed diabetes type 2: A1c 6.6 Hyperglycemia/hypoglycemia protocol in place Patient will be discharged on metformin 500 mg twice daily Lifestyle modification and diet discussed with patient Hypertension: BP has consistently been running high SBP 160s-170s Lisinopril 10 mg daily initiated - BP controlled Hyperlipidemia: LDL 130 - goal < 70 Atorvastatin 40 mg p.o. daily initiated Arthritis: Acetaminophen p.r.n. for mild pain. Code status: Full code DVT prophylaxis: Heparin Jennifer Rosario Internal Medicine Resident Date of Service: November 08, 2024 Billing Provider: STACEY ALBERT MD, SHAMS, RES November 08, 2024 18:32
[2024-11-08] MEDS: losartan 50mg tablet PO ONE (23:06)
[2024-11-09] VITALS (8 sets, daily range): BP systolic 154–172; BP diastolic 59–71; PULSE 82–95; RESP 16–20; TEMP 98–98.4; O2SAT 94–99
[2024-11-09 06:47] LABS: BASOPHILS # (AUTO) 0.1 X10'3 (0-0.2); BASOPHILS % (AUTO) 0.6 % (0-1); EOSINOPHILS % (AUTO) 0 % (0-6); HEMATOCRIT 34.9 % (35.0-45.0); HEMOGLOBIN 11.1 g/dl (12.0-16.0); LYMPHOCYTES # (AUTO) 1.5 X10'3 (1.1-4.8); LYMPHOCYTES % (AUTO) 14.3 % (21-51); MEAN CORPUSCULAR HEMOGLOBIN 28.6 PG (27.0-31.0); MEAN CORPUSCULAR HGB CONC 31.9 g/dL (33.0-36.5); MEAN CORPUSCULAR VOLUME 89.5 FL (78-98); MEAN PLATELET VOLUME 10.1 FL (7.4-10.4); MONOCYTES # (AUTO) 0.7 X10'3 (0-0.9); MONOCYTES % (AUTO) 6.2 % (2-12); NEUTROPHILS # (AUTO) 8.5 X10'3 (1.8-7.7); NEUTROPHILS % (AUTO) 78.9 % (42-75); PLATELET COUNT 259 X10'3 (140-440); RED CELL DISTRIBUTION WIDTH 14.4 % (11.5-14.5); WHITE BLOOD COUNT 10.8 X10'3 (4.5-11.0)
[2024-11-09 07:21] LABS: ALANINE AMINOTRANSFERASE 14 U/L (12-78); ALBUMIN/GLOBULIN RATIO 0.9 (1.1-1.5); ALKALINE PHOSPHATASE 76 IU/L (46-116); ANION GAP 5 (8-16); ASPARTATE AMINO TRANSFERASE 20 U/L (10-37); BILIRUBIN,TOTAL 0.2 MG/DL (0.1-1.0); BLOOD UREA NITROGEN 17 MG/DL (7-18); BUN/CREATININE RATIO 30.4 (10.0-20.0); CHLORIDE 108 MMOL/L (99-107); CREATININE 0.56 MG/DL (0.40-0.90); GLUCOSE 121 MG/DL (70-104); MAGNESIUM 2.3 MG/DL (1.5-2.4); SODIUM 146 MMOL/L (135-145); TOTAL CARBON DIOXIDE 32.7 MMOL/L (24-32); TOTAL PROTEIN 6.5 G/DL (6.4-8.2); eCRCL 61 ML/MIN; eGFR > 90 ML/MIN
[2024-11-09 07:27] LABS: POTASSIUM 4.3 MMOL/L (3.5-5.1)
[2024-11-09] MEDS: amLODIPine 5mg tablet PO SCH (08:00)
[2024-11-09] MEDS: methylPREDNISolone sod succ/PF 40mg inj. IV SCH (08:00)
--- NOTE | 2024-11-09 19:25 | DISCHARGE SUMMARY-Residence ---
Discharge Summary Providers to CC Resident Creating Document: JENNIFER LUNDY, RES ~ Discharge Summary Admission Diagnosis: COPD EXACERBATION Hospital Course DATE OF ADMISSION: November 05, 2024 DATE OF DISCHARGE: November 09, 2024 Discharge Diagnosis\Comment: Acute on chronic hypoxemic respiratory failure: Acute exacerbation of COPD: Acute exacerbation of congestive heart failure-ruled out: Severe centrilobular emphysema Newly diagnosed diabetes type 2 A1c 6.6 Hypertension Hyperlipidemia Arthritis, likely osteoarthritis Operations\Procedures: None Consultants: None Complications: None Condition on DC: Stable for transfer Discharge Summary: Patient was admitted with the following HPI: 79-year-old female patient quit past medical history of COPD diagnosed in 2018, using 2 L of oxygen at home, arthritis came to the hospital with chief complaint of shortness of breath. The patient mentioned that during the last week her home oxygen machine was not working appropriately reason for which she started having increased episodes of shortness of breath. Yesterday the patient received a new machine, the patient was using it as always but she noticed that she was not able to catch her breath. The patient also endorses increased frequency of dry cough, this morning the patient noticed that his oxygen saturation was decreasing even though after she increased her oxygen levels, reason for which she decided to to call to the ambulance and come to the hospital. Among other symptoms the patient mentioned that when she has the shortness of breath some chest pressure is noted, without radiation, 5/10 in intensity. The patient currently denies palpitations, lightheadedness, dizziness, urinary or intestinal symptoms. Hospital course: Patient was admitted for acute on chronic hypoxemic respiratory failure secondary to acute exacerbation of COPD. D-dimer was elevated, followed by CTA, PE ruled out. 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 No evidence of dissection or ascending thoracic aorta aneurysm. She was treated with antibiotics i.e. ceftriaxone, and azithromycin, DuoNeb nebulization, supplemental oxygen, and incentive spirometry. Additionally, patient was diagnosed with type 2 diabetes with A1c of 6.7, she was treated with hyperglycemia/hypoglycemia protocol. Furthermore, her BP has consistently remained high with SBP in 160s-170s. Initially, lisinopril 10 mg was initiated, however, BP remained elevated, therefore amlodipine 10 mg daily added and blood pressure was controlled. Her other comorbidities including hyperlipidemia and arthritis was treated with home medications i.e. atorvastatin and acetaminophen. Discharge course: Patient has been lacking access to primary care doctor, case management referred her to [facility] for establishing care. She was also referred to pulmonary rehab in order to prevent readmission. Due to lack of social support and preventing readmission patient was referred to nursing home facility. Upon discharge, patient is hemodynamically stable. Her shortness of breath has significantly improved. She is afebrile and normotensive. Discharge instructions: PATIENT HAS AN APPOINTMENT WITH [address] [address] P: [id number] ON 11/13/24 2:30PM. GET A REFERRAL TO DR. LEVI BENITEZ FOR FURTHER MANAGEMENT OF YOUR COPD. FOLLOW UP WITH PULMONARY REHAB. Discharge medications: Prednisolone 10 mg as following: Three tablets daily for three days Two tablets daily for three days One tablet daily for three days Half tablet daily for three days Cefdinir 300 mg p.o. twice daily for four days Symbicort inhaler DuoNeb nebulization every 6 hours scheduled and every 2 hours as needed Culturelle Discharge physical exam: Vital Signs Date Time Temp Pulse Resp B/P (MAP) Pulse Ox O2 Delivery O2 Flow Rate FiO2 11/09/24 16:03 94 17 96 Nasal Cannula* 3 32 11/09/24 10:00 98.0 154/59 (90) General: Awake and Alert, speaks in pauses due to shortness of breath, unable to complete a sentence HEENT: Conjunctiva pink, Sclera clear, Mucus Membranes moist. Neck: Supple without masses and tenderness. Resp: Intermittent mild bilateral wheezing Heart: Regular Rate and rhythm, normal S1 and S2 without murmur, rub or gallop. Abdomen: Soft and non tender no organomegaly Extremities: No cyanosis,clubbing or edema. Skin: Warm and Dry. *Problems/Diagnosis: (1) COPD exacerbation Status: Acute Total Time Spent on D/C: Up to 30 Minutes Date of Service: November 09, 2024 Billing Provider: STACEY ALBERT MD, SHAMS, RES November 09, 2024 19:25
== END 2024-11-09 17:15 | DRG 189 ==
LOC: ER 16:12 → ED HOLD 21:42 → ORTHO 4S 23:20
PROVIDERS: ADMIT Surgery Surgical Critical Care; ATTEND Family Medicine
PROC: B32T1ZZ Computerized Tomography (CT Scan) of Left Pulmonary Artery using Low Osmolar Contrast (ICD-10-PCS; principal; 2024-11-05)
PROC: B3201ZZ Computerized Tomography (CT Scan) of Thoracic Aorta using Low Osmolar Contrast (ICD-10-PCS; 2024-11-05)
PROC: B32S1ZZ Computerized Tomography (CT Scan) of Right Pulmonary Artery using Low Osmolar Contrast (ICD-10-PCS; 2024-11-05)
DX: J96.21 Acute and chronic respiratory failure with hypoxia (principal); J44.1 Chronic obstructive pulmonary disease with (acute) exacerbation; J43.9 Emphysema, unspecified; Z20.822 Contact with and (suspected) exposure to COVID-19; I10 Essential (primary) hypertension; E11.9 Type 2 diabetes mellitus without complications; E78.00 Pure hypercholesterolemia, unspecified; Z87.891 Personal history of nicotine dependence; Z79.82 Long term (current) use of aspirin; Z79.899 Other long term (current) drug therapy
CPT/HCPCS: 36410; 36415; 71045; 71275; 76937; 80053; 80061; 81003; 82948; 83036; 83735; 83880; 84145; 84484; 85025; 85379; 85651; 86140; 87081; 87811; 93005; 93306; 94640; 94664; 94760; 97110; 97161; 97530; 99285; C1751; G0378; J0696; J1644; J1815; J2919; J7030; Q9967

== ENCOUNTER 2024-12-03 10:43 | Emergency (ER) | payer BC, MEDICAID ==
[~2024-12-03] VITALS: Ht 149.9 cm; Wt 58.0 kg
[~2024-12-03 10:43] MED LIST changes: -AMLO10TA16 PO; -IPRA4AER IH; -LACT10SO78 PO; -MONT-40 PO; -PRED20TA PO
[2024-12-03 10:50] VITALS: TEMP 98
--- NOTE | 2024-12-03 16:03 | Physician Documentation ---
History of Present Illness ~ General Chief Complaint: See Chief Complaint Stated Complaint: NO MED COMPLAINT Time Seen by MD: 15:59 OK to notify your PCP?: Yes Primary Medical Doctor: None Source: patient, RN/MD, EMS, RN notes reviewed, EMS notes reviewed, old records Mode of Arrival: EMS Exam Limitations: no limitations History of Present Illness Initial Comments 79-year-old female, brought to the ED via EMS from [facility] (where she is being treated for COPD exacerbation) because she is unhappy with the care she is receiving at the facility. Patient apparently called 911 while there. She now is complaining of some sinus congestion and pleuritic pain, when breathing. She denies any fevers, chills, or chest pain. She is not on any blood thinners but does use oxygen 24/ at home. Medication Reconciliation Allergies: Coded Allergies: No Known Allergies (Unverified , 11/05/24) Scheduled Aspirin (Aspirin EC), 1 TAB PO DAILY Azelastine HCl (Azelastine HCl), 2 SPRAY NS BID Budesonide/Formoterol Fumarate (Budesonide-Formoterol 160-4.5), 2 PUFFS INH Q12H Guaifenesin (Mucinex), 1,200 MG PO Q12H Scheduled PRN Acetaminophen (Tylenol), 1 TAB PO Q4HPRN PRN for pain or fever, (Reported) Acetaminophen (Tylenol), 1 TAB PO Q4HPRN PRN for pain or fever, (Reported) Albuterol Sulfate (Ventolin Hfa), 1-2 PUFFS IH Q4H PRN for SOB or wheezing Past Medical History Past Medical History: High Cholesterol, COPD Past Surgical History: noncontributory Patient History: FH: hypertension MOTHER Maternal grandmother Alcohol Use: Occasionally Drug Use: marijuana Lives with: Other Lives In: Home Occupation: retired Review of Systems All Other Systems at this time: Reviewed and Negative ROS As stated above in the HPI, otherwise all systems are reviewed and negative. Physical Exam Physical Exam Vital Signs: RN Vital Signs have been reviewed: Yes, Temperature: 98.0, Source: Oral, Heart Rate: 95, Respiratory Rate: 18, BP: 152/69, Pulse Oximetry: 95, Weight: 58.000 Oxygen Flow Rate: 3.0 Pulse Oximetry Reflects: adequate oxygenation Physical Exam General: The patient is well developed, well nourished, nontoxic appearing and is in no acute distress. Skin: Justice, warm and dry with no rashes. HEENT: Head was normocephalic and atraumatic. Chest: Short shallow breath sounds. Clear to auscultation bilaterally without wheezes, rales or rhonchi. No accessory muscle use. No dullness to percussion. Heart: Rate regular and rhythmic. S1, S2. No murmurs. Palpation of the chest wall was normal. No rubs or thrills. Abdomen: Soft, nontender and nondistended. Positive bowel sounds. No guarding or rebound. Extremities: No cyanosis, clubbing or edema. The patient moves all extremities. Pulses were equal and symmetric. Neurologic: Motor and sensation grossly intact. Cranial nerves II-XII grossly intact. A & O x4. Psychologic: Normal mood and affect. No agitation. Gastrointestinal: pulsatile mass Progress Results/Orders Reviewed/noted all lab results: Yes Results/Orders Orders - AMARI ROMAN MD Chest,Single View (12/03/24 16:13) Electrocardiogram (12/03/24 16:13) Completed Orders - AMARI ROMAN MD Chest,Single View (12/03/24 16:13) Electrocardiogram (12/03/24 16:13) Acetaminophen 325mg Tablet (Tylenol Tabl (12/03/24 16:15) Medications Received in ER Medications (Trade) Dose Ordered Sig/Thais Route PRN Reason Start Time Stop Time Status Last Admin Dose Admin (Tylenol tablet) 325 mg ONCE ONCE PO 12/03/24 16:15 12/03/24 16:16 DC 12/03/24 17:21 325 MG Vital Signs 12/03/24 12/03/24 12/03/24 10:50 13:43 16:46 Temp 98.0 Pulse 101 95 99 Resp 21 18 18 B/P (MAP) 142/67 152/69 (96) 146/94 (111) Pulse Ox 95 95 99 O2 Flow Rate 3.0 3.0 3.0 Re-Evaluation Re-Evaluation : Re-Evaluation: Improved Progress Patient was seen and examined. Patient is given reassurance. Patient had an x- ray that did not show any significant injury except some old fractures. EKG was also reassuring she received some Tylenol for pain she already takes aspirin. She has had a skilled facility she has complaints of COPD but was having no symptoms or wheezing she was angry at her care however medically there was no acute disease. Ultimately she was discharged home back to the facility. 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 Amari Roman Measurements Intervals [place] Rate: 116 P: 54 [place]: 153 QRS: 53 QRSD: 93 T: 75 QT: 310 QTc: 431 Interpretive Statements Sinus tachycardia Ventricular premature complex Consider left atrial enlargement ST elevation, consider inferior injury Baseline wander in lead(s) V2 Electronically Signed On 12-03-2024 17:23:[address] Amari Roman (interpreted by myself) Chest X-Ray : Additional Comments EXAM: XR Chest, 1 View CLINICAL INDICATION: CHEST PAIN TECHNIQUE: Frontal view of the chest. COMPARISON: DI CHEST,SINGLE VIEW on DOS: 10/15/24, DI CHEST,SINGLE VIEW on DOS: 01/16/24 FINDINGS: LUNGS AND PLEURAL SPACES: See below. HEART: Cardiomegaly with mild congestion. MEDIASTINUM: Unremarkable. Normal mediastinal contour. BONES/JOINTS: Unremarkable. No acute fracture. OTHER FINDINGS: . IMPRESSION: Cardiomegaly with mild congestion. Reviewed by myself, Dr. Roman. Medical Decision Making Additional info obtained from: old records Departure Disposition: HOME / SELF CARE / HOMELESS Impression: Primary Impression: Pleuritic pain Additional Impressions: Old rib fractures Rib pain Condition: Stable Discharge Instructions: Pleurisy, Bsym-oc-Vtie Education Educated: Patient Educated regarding: diagnosis, other Signature Scribe Signature: Scribed for Amari Roman MD by Tasha Baptiste . 12/03/24 16:31 Attestation: The note accurately reflects work and decisions made by me.Amari Roman MD 6/2/25 16:02 AMARI ROMAN MD Dec 03, 2024 16:03 TASHA BORJAS Dec 03, 2024 16:37
[2024-12-03] MEDS ORDERED: ACET-1008 PO (16:19)
--- NOTE | 2024-12-03 16:38 | RADIOLOGY REPORT ---
EXAM: XR Chest, 1 View CLINICAL INDICATION: CHEST PAIN TECHNIQUE: Frontal view of the chest. COMPARISON: DI CHEST,SINGLE VIEW on DOS: 10/15/24, DI CHEST,SINGLE VIEW on DOS: 01/16/24 FINDINGS: LUNGS AND PLEURAL SPACES: See below. HEART: Cardiomegaly with mild congestion. MEDIASTINUM: Unremarkable. Normal mediastinal contour. BONES/JOINTS: Unremarkable. No acute fracture. OTHER FINDINGS: . IMPRESSION: Cardiomegaly with mild congestion.
--- NOTE | 2024-12-03 16:40 | ELECTROCARDIOGRAPH REPORT ---
[facility] Test Date: 2024-12-03 Test Time: 16:37:45 Pat Name: YONIS CATSRO Department: [facility] Patient ID: [facility]-[id number] Room: Gender: F [employer] Aide: : 1945 Requested By: STEPHANY JURADO Order Number: [id number] Reading MD: Dr. Stephany Jurado Measurements Intervals [place] Rate: 116 P: 54 [place]: 153 QRS: 53 QRSD: 93 T: 75 QT: 310 QTc: 431 Interpretive Statements Sinus tachycardia Ventricular premature complex Consider left atrial enlargement ST elevation, consider inferior injury Baseline wander in lead(s) V2 Electronically Signed On 12-03-2024 17:23:[address] Stephany Jurado Please click the below link to view image of tracing.
[2024-12-03 16:46] VITALS: BP 146/94; PULSE 99; RESP 18; O2SAT 99
[2024-12-03] MEDS: acetaminophen 325mg tablet PO ONE (17:21)
== END 2024-12-03 18:09 | disposition home or self-care (01) ==
LOC: ER 10:44
DX: S22.39XA Fracture of one rib, unspecified side, initial encounter for closed fracture (principal); E78.00 Pure hypercholesterolemia, unspecified; F12.90 Cannabis use, unspecified, uncomplicated; Z79.82 Long term (current) use of aspirin; X58.XXXA Exposure to other specified factors, initial encounter; Y93.89 Activity, other specified; Y92.89 Other specified places as the place of occurrence of the external cause; Y99.8 Other external cause status
CPT/HCPCS: 71045; 93005; 99284